=== PATIENT | male | born 1975 | race Caucasian/White ===

== ENCOUNTER 2021-11-24 00:52 | Emergency (ER) | payer SELFPAY ==
[2021-11-24] MEDS ORDERED: Mag-Al 1200 mg/1200 mg/30 ML UDCUP ONE (01:10)
[2021-11-24] MEDS ORDERED: Lidocaine Viscous Sol 2% 15 ml UD Cup ONE (01:10)
[2021-11-24 01:29] LABS: #Basophils 0.1 thou/uL (0.0-0.2); #Eosinphils 0.4 thou/uL (0.0-0.7); #Lymphocytes 2.8 thou/uL (1.20-3.40); #Monocytes 0.9 thou/uL (0.11-0.59); #Neutrophils 4.9 thou/uL (1.40-6.50); %Basophils 0.8 % (0.0-1.0); %Eosinophils 4.1 % (0.0-10.0); %Lymphocytes 30.8 % (21.0-51.0); %Monocytes 10.2 % (0.0-10.0); Hemoglobin 15.1 g/dL (14.0-18.0); Mean Corpuscular HGB CONC 34.2 g/dL (32.0-36.0); Mean Corpuscular Hemoglobin 34.1 pg (27.0-31.0); Mean Corpuscular Volume 99.7 fL (78.0-98.0); Mean Platelet Volume 7.6 fL (7.4-10.4); Platelet Count 194 thou/uL (130-400); RBC Distribution Width 11.3 % (11.5-14.5); Red Blood Cell (RBC) Count 4.44 mill/uL (4.70-6.10); White Blood Cell (WBC) Count 9.1 thou/uL (4.8-10.8)
[2021-11-24 01:51] LABS: ALT (SGPT) 56 U/L (8-55); AST (SGOT) 37 U/L (5-34); Albumin 4.1 g/dL (3.5-5.0); Alkaline Phosphatase 80 U/L (40-110); Anion Gap 13 mmol/L (10-20); BUN (Urea Nitrogen) 11 mg/dL (8.9-20.6); Bilirubin, Total 0.8 mg/dL (0.2-1.2); Calc. Creatinine Clearance 0 mL/min (70-130); Carbon Dioxide 25 mmol/L (22-29); Chloride 103 mmol/L (98-107); Globulin 2.7 g/dL (2.4-3.5); Glucose 190 mg/dL (70-105); Lipase 48 U/L (8-78); Potassium 4.1 mmol/L (3.5-5.1); Protein, Total 6.8 g/dL (6.0-8.3); Sodium 137 mmol/L (136-145)
== END 2021-11-24 02:53 | disposition home or self-care (01) ==
LOC: ERS 00:52
DX: S27.819A Unspecified injury of esophagus (thoracic part), initial encounter (principal); X58.XXXA Exposure to other specified factors, initial encounter
CPT/HCPCS: 36415; 71045; 80053; 83690; 85025; 93005

== ENCOUNTER 2021-11-24 04:25 | Emergency (ER) | payer SELFPAY ==
[2021-11-24] MEDS ORDERED: Mag-Al 1200 mg/1200 mg/30 ML UDCUP ONE (04:58)
[2021-11-24] MEDS ORDERED: Lidocaine Viscous Sol 2% 15 ml UD Cup ONE (04:58)
[2021-11-24 05:48] LABS: Hemoglobin 15.9 g/dL (14.0-18.0); Lymphocytes 26 % (21-51); MDiff Complete? YES; Mean Corpuscular HGB CONC 33.7 g/dL (32.0-36.0); Mean Corpuscular Hemoglobin 33.6 pg (27.0-31.0); Mean Corpuscular Volume 99.8 fL (78.0-98.0); Mean Platelet Volume 7.6 fL (7.4-10.4); Monocytes 8 % (0-10); Neutrophil 65 % (42-75); Platelet Count 284 thou/uL (130-400); Platelet Morphology Comment Appears Adequate; RBC Distribution Width 11.2 % (11.5-14.5); Reactive Lymphocytes 1 % (0-10); Red Blood Cell (RBC) Count 4.74 mill/uL (4.70-6.10); White Blood Cell (WBC) Count 20.6 thou/uL (4.8-10.8)
[2021-11-24] MEDS ORDERED: Ketorolac Tromethamine 30 MG/ML VIAL ONE (06:28)
[2021-11-24] MEDS ORDERED: Cefepime 2 GM VIAL ONE (06:30)
[2021-11-24 06:36] LABS: Actual Bicarbonate (HCO3v) 15 mEq/L (22-28); Analyzer IN Cardio ER; Base Excess -8.5 mEq/L (-2.0 to +3.0); Calcium, Ionized (venous) 1.08 mmol/L (1.16-1.32); Chloride (VBG) 104 mmol/L (98-106); Hemoglobin (Hb) 16.5 g/dL (13.2-17.3); Potassium (VBG) 4.28 mmol/L (3.70-5.30); Sodium 136.5 mmol/L (133-146); pH (venous) 7.35 (7.32-7.43)
[2021-11-24 06:59] LABS: ALT (SGPT) 64 U/L (8-55); AST (SGOT) 48 U/L (5-34); Albumin 4.6 g/dL (3.5-5.0); Alkaline Phosphatase 88 U/L (40-110); Anion Gap 19 mmol/L (10-20); BUN (Urea Nitrogen) 12 mg/dL (8.9-20.6); Bilirubin, Total 0.9 mg/dL (0.2-1.2); Calc. Creatinine Clearance 0 mL/min (70-130); Calcium 9.5 mg/dL (7.8-10.44); Carbon Dioxide 20 mmol/L (22-29); Chloride 103 mmol/L (98-107); Globulin 3.2 g/dL (2.4-3.5); Glucose 164 mg/dL (70-105); Protein, Total 7.8 g/dL (6.0-8.3); Sodium 138 mmol/L (136-145)
[2021-11-24] MEDS ORDERED: Vancomycin 1 GM/200 ML BAG ONE (06:59)
== END 2021-11-24 08:29 | disposition short-term general hospital (02) ==
LOC: ERS 04:25
DX: S27 Injury of other and unspecified intrathoracic organs (principal); J98.2 Interstitial emphysema; A41.9 Sepsis, unspecified organism; D72.829 Elevated white blood cell count, unspecified; E87.2 Acidosis; X58.XXXA Exposure to other specified factors, initial encounter
CPT/HCPCS: 71260; 82805; 83605; 87040; 96365; 96367; 96375; J0692; J1885; J3370